=== PATIENT | male | born 1960 | race Caucasian/White ===

== ENCOUNTER 2017-12-15 01:14 | Day surgery (SDC) | payer OTHER ==
[2017-12-15] VITALS (8 sets, daily range): BP systolic 115–137; BP diastolic 73–88
[~2017-12-15] VITALS: Ht 172.7 cm; Wt 82.6 kg
[~2017-12-15 01:14] MED LIST: SERT25TA87 PO
[2017-12-15] MEDS ORDERED: PROPOFOL EMUL(*) 10MG/ML 20 ML 20 ML ONE (07:26)
[2017-12-15] MEDS ORDERED: LIDOCAINE/SOD BICARB 8.4% SYR ID ONE (08:30)
[2017-12-15] MEDS ORDERED: NORMOSOL R SOLN(*) 1000 ML BAG 1,000 ML IV PRN (08:30)
--- NOTE | 2017-12-15 09:57 | Short(Outpt) Discharge Summary ---
Discharge Summary Reason for Hosp/Final Diag: (1) Colon cancer screening Status: Chronic Hospital Course & Plan: Colonoscopy with polypectomy completed without problems. Departure Discharge to: Home, Self Care Discharge Instructions Home Meds No Active Prescriptions or Reported Meds Diet: Regular Activity: As Tolerated Special Instructions: Your colonoscopy was completed without any problems and your prep was excellent (Good Job!!). I removed a single small polyp from your colon and it was sent to pathology. My office will call you in the next week and let you know what the polyp is and when your next colonoscopy should be (either 5 or 10 years depending on what the polyp is). NICK MONTGOMERY MD December 15, 2017 09:57
== END 2017-12-15 11:55 | disposition home or self-care (01) ==
LOC: OR 01:14
PROVIDERS: ATTEND Surgery
DX: Z12.11 Encounter for screening for malignant neoplasm of colon (principal); K63.5 Polyp of colon
CPT/HCPCS: 00811; 45385; 88305; J2704